=== PATIENT | female | born 1970 | race Caucasian/White ===

== ENCOUNTER 2022-04-15 17:35 | Emergency (ER) | payer OTHER, SELFPAY ==
--- NOTE | 2022-04-15 17:37 | XRR_ITS ---
PROCEDURE INFORMATION: Exam: XR Left Ankle Exam date and time: 04/15/2022 5:43 PM Age: 52 years old Clinical indication: Injury or trauma; Fall; Sprain or strain; Ankle; Left TECHNIQUE: Imaging protocol: Radiologic exam of the Left ankle. Views: 3 or more views. COMPARISON: No relevant prior studies available. FINDINGS: Bones/joints: No acute fracture. No dislocation. Normal bone mineralization. No joint effusion. Joint spaces are maintained. Soft tissues: Mild soft tissue swelling over the lateral malleolus. No radiopaque foreign body. XR/XR ankle LT min 3V* [id number] IMPRESSION: 1. No acute fracture of the left ankle. Followup imaging recommended in 7-14 days if clinical concern for fracture persists. 2. Mild soft tissue swelling over the lateral malleolus.
[2022-04-15 17:49] VITALS: BP 105/70; PULSE 47; RESP 16; TEMP 36.6; O2SAT 99; BMI 21.4
[2022-04-15 20:38] VITALS: RESP 16
[2022-04-15] MEDS: oxyCODONE-APAP 5-325 mg Tablet 2 TAB PO (20:38)
--- NOTE | 2022-04-16 02:41 | ED_ITS ---
HPI - Extremity Problem General: Chief complaint: Extremity Injury, Lower Stated complaint: left ankle pain Time Seen by Provider: 04/15/22 20:04 Source: patient History of Present Illness: 52-year-old female who rolled her ankle coming down from stairs. [place]. She has experienced pain with any movement, or attempted weightbearing of the lateral ankle. She has swelling as well. MD Complaint: extremity pain and extremity swelling Onset (ago): hour(s) Pain Consistency: constant Location: left Quality: stabbing Associated symptoms: Deny chest pain or fever(s) Review of Systems Const: Denies: fever(s) Card: Denies: chest pain Resp: Denies: dyspnea Physical Exam Const: COMMON NORMALS: no acute distress GENERAL APPEARANCE: cooperative HENMT: COMMON NORMALS: normocephalic and atraumatic HEAD & SCALP: normocephalic and atraumatic FACE & SINUS: normal facial exam Eye: COMMON NORMALS: Equal, round and reactive pupils present and EOMs intact bilaterally PUPIL: Yes Equal, round and reactive pupils present Chest: CHEST: Yes Symmetrical chest wall rise Resp: COMMON NORMALS: normal respiratory effort, No use of accessory muscles and clear to auscultation bilaterally AUSCULTATION: clear to auscultation bilaterally Cardio: COMMON NORMALS: regular rate and regular rhythm RATE: regular rate RHYTHM: regular rhythm Extremity: NARRATIVE EXTREMITY EXAM: Examination left ankle reveals left ankle lateral soft tissue swelling. There is tenderness over the lateral ankle, distal fibula, and ATFL. There is minimal medial tenderness. There is mild joint line tenderness. There is no significant proximal fibular tenderness. Neuro: BRIDGETTE COMA SCALE: document GCS findings [place] coma scale eye opening: Spontaneous [place] coma scale verbal response: Orientated [place] coma scale motor response: Obey commands [place] coma scale total score: 15 Psych: COMMON NORMALS: mental status grossly normal Course Vital Signs: Vital signs: Vital Signs Temperature 97.8 F 04/15/22 17:49 Pulse Rate 47 L 04/15/22 17:49 Respiratory Rate 16 04/15/22 20:38 Blood Pressure 105/70 04/15/22 17:49 Pulse Oximetry 99 04/15/22 17:49 MDM - Extremity (Nontraumatic) Medical Decision Making No fracture on x-ray. She be treated for acute lateral ankle sprain Lab Data Radiology Impressions Ankle X-Ray 04/15/22 17:37 IMPRESSION: 1. No acute fracture of the left ankle. Followup imaging recommended in 7-14 days if clinical concern for fracture persists. 2. Mild soft tissue swelling over the lateral malleolus. Discharge Plan Discharge Patient Disposition: Home Clinical Impression: Ankle sprain and strain Condition: Stable Prescriptions: New hydrocodone-acetaminophen 5-325 mg tablet 1 tab PO Q8H PRN (Reason: pain) Qty: 7 0RF Discharge Orders: Discharge ED (Routine); Ordered 04/15/22 Ordered By: Shawn Watson Discharge Diet: Usual diet Discharge Activity: Limit activity as instructed Patient Instructions: Ankle Sprain (ED), Opioid Safety Activity Restrictions/Additional Instructions: You may begin to bear weight as tolerated, when pain subsides. See your doctor next week for repeat evaluation. Use crutches for weightbearing until comfortable. Stay in brace until seen. You may alternate pain medication with ibuprofen for pain and swelling. Ice particularly for the first 48 hours will help with pain and swelling as well. Coding Level of Care Code ED Pediatric Pathologist for Billy Fwd Exam Comprehensive
== END 2022-04-15 20:46 | disposition home or self-care (01) ==
PROVIDERS: Emergency Provider Emergency Medicine
DX: S93.402A Sprain of unspecified ligament of left ankle, initial encounter (principal); W10.9XXA Fall (on) (from) unspecified stairs and steps, initial encounter
CPT/HCPCS: 73610; 99283; E0114